=== PATIENT | male | born 1955 | race Caucasian/White ===

== ENCOUNTER 2018-01-14 23:34 | Emergency (ER) | payer OTHER | END 2018-01-15 02:07 | disposition home or self-care (01) | LOC: FTE 23:34 | DX: S30.820A Blister (nonthermal) of lower back and pelvis, initial encounter (principal); I10 Essential (primary) hypertension; E11.9 Type 2 diabetes mellitus without complications; X58.XXXA Exposure to other specified factors, initial encounter; Y92.9 Unspecified place or not applicable; Z79.4 Long term (current) use of insulin; Z79.82 Long term (current) use of aspirin | CPT/HCPCS: 99283 ==

== ENCOUNTER 2018-05-09 21:38 | Inpatient (IN) | payer OTHER ==
[2018-05-09 23:41] LABS: ADD MAN DIFF? NO
[2018-05-09 23:44] LABS: BASOPHILS % 0.2 % (0.0-2.0); EOSINOPHILS # 0.1 10^3/ul (0.0-0.5); EOSINOPHILS % 1.2 % (0.0-7.0); HEMATOCRIT 28.8 % (42.0-52.0); LYMPHOCYTES # 1.3 10^3/ul (0.8-2.9); LYMPHOCYTES % 12.3 % (15.0-51.0); MEAN CORPUSCULAR HEMOGLOBIN 30.4 pg (29.0-33.0); MEAN CORPUSCULAR HGB CONC 34.7 g/dl (32.0-37.0); MEAN CORPUSCULAR VOLUME 87.5 fl (82.0-101.0); MEAN PLATELET VOLUME 11.6 fl (7.4-10.4); MONOCYTE # 0.7 10^3/ul (0.3-0.9); MONOCYTES % 6.8 % (0.0-11.0); NEUTROPHIL # 8.3 10^3/ul (1.6-7.5); NEUTROPHILS % 79.1 % (39.0-77.0); PLATELET COUNT 196 10^3/UL (140-415); RED BLOOD COUNT 3.29 10^6/ul (4.70-6.10); RED CELL DISTRIBUTION WIDTH 12.6 % (11.5-14.5)
[2018-05-09 23:44] LABS: WHITE BLOOD COUNT 10.5 10^3/ul (4.8-10.8)
[2018-05-09 23:54] LABS: ANION GAP 12 (8-16); BLOOD UREA NITROGEN 37 mg/dl (7-20); CALCIUM 8.5 mg/dl (8.4-10.2); CARBON DIOXIDE 24 mmol/L (21-31); CHLORIDE 96 mmol/L (97-110); CREATININE 1.48 mg/dl (0.61-1.24); MAGNESIUM 1.9 mg/dl (1.7-2.5); PHOSPHORUS 3.7 mg/dl (2.5-4.9); POTASSIUM 4.8 mmol/L (3.5-5.1); SODIUM 127 mmol/L (135-144)
[2018-05-09 23:59] LABS: GLUCOSE 590 mg/dl (70-220)
[2018-05-09] MEDS: SOD CHLORIDE 0.9% IV (23:59)
[2018-05-09] MEDS: PIPER-TAZO 3.375 GM IV (PMX) 100 ML IVPB (23:59)
[2018-05-10 00:31] LABS: MODE ROOM AIR; MetHgb Venous 0.1 %; Sample Type Blood venous; Site VENOUS LINE; Venous COHb 0.6 %; Venous Fraction OxyHgb 55.6 %; Venous Total Hemglobin 11.4 g/dl
[2018-05-10] MEDS: VANCOMYCIN 1 GM (PMX) 250 ML IVPB (01:02)
[2018-05-10] MEDS: INSULIN LISPRO 100 UNIT/ML VIAL SC (02:57)
[2018-05-10] MEDS ORDERED: GLUCOSE GEL 15 GRAM TUBE PO ×2 (03:00)
[2018-05-10] MEDS ORDERED: ONDANSETRON 4 MG TAB PO (03:00)
[2018-05-10] MEDS ORDERED: DEXTROSE 50% 50 ML SYRINGE IV ×2 (03:00)
[2018-05-10] MEDS ORDERED: BISACODYL (EC) 5 MG TAB PO (03:00)
[2018-05-10] MEDS ORDERED: GLUCAGON 1 MG INJ IM (03:00)
[2018-05-10] MEDS ORDERED: NACL 0.9% 3 ML SYG IV (03:00)
[2018-05-10] MEDS ORDERED: GLUCOSE GEL 15 GRAM TUBE BUCCAL (03:00)
[2018-05-10] MEDS ORDERED: DOCUSATE SODIUM 100 MG CAP PO (03:00)
[2018-05-10] MEDS ORDERED: VANCOMYCIN IV PER PHARMACY XX (03:00)
[2018-05-10] MEDS: AMLODIPINE 2.5 MG TAB PO (03:34)
[2018-05-10] MEDS: HYDROCODONE/APAP (5/325) TAB PO ×2 (03:34→20:04)
[2018-05-10] MEDS: MAGNESIUM OXIDE 400 MG TAB PO (03:34)
[2018-05-10] MEDS ORDERED: PENDING SANTYL ORDER FOR WOUND CARE XX (05:30)
[2018-05-10] MEDS: INSULIN GLARGINE [LANTus] (100 UNITS/ML) SYG SC ×2 (05:38→20:07)
[2018-05-10] MEDS: HEPARIN 5,000 UNIT/0.5 ML VIAL SC ×3 (05:39→20:08)
[2018-05-10] MEDS: VANCOMYCIN 1 GM 250 ML IVPB (05:42)
[2018-05-10 06:55] LABS: ADD MAN DIFF? NO
[2018-05-10] MEDS ORDERED: AMLODIPINE 10 MG TAB PO (07:00)
[2018-05-10] MEDS ORDERED: METOPROLOL (XL) 25 MG TAB PO (07:00)
[2018-05-10 07:04] LABS: BASOPHILS % 0.1 % (0.0-2.0); EOSINOPHILS # 0.2 10^3/ul (0.0-0.5); EOSINOPHILS % 2.2 % (0.0-7.0); HEMATOCRIT 26.1 % (42.0-52.0); LYMPHOCYTES # 1.1 10^3/ul (0.8-2.9); LYMPHOCYTES % 13.3 % (15.0-51.0); MEAN CORPUSCULAR HEMOGLOBIN 30.3 pg (29.0-33.0); MEAN CORPUSCULAR HGB CONC 34.5 g/dl (32.0-37.0); MEAN CORPUSCULAR VOLUME 87.9 fl (82.0-101.0); MEAN PLATELET VOLUME 11.7 fl (7.4-10.4); MONOCYTE # 0.6 10^3/ul (0.3-0.9); MONOCYTES % 7.5 % (0.0-11.0); NEUTROPHIL # 6.3 10^3/ul (1.6-7.5); NEUTROPHILS % 76.4 % (39.0-77.0); PLATELET COUNT 173 10^3/UL (140-415); RED BLOOD COUNT 2.97 10^6/ul (4.70-6.10); RED CELL DISTRIBUTION WIDTH 12.7 % (11.5-14.5)
[2018-05-10 07:04] LABS: WHITE BLOOD COUNT 8.3 10^3/ul (4.8-10.8)
[2018-05-10 07:23] LABS: ALANINE AMINOTRANSFERASE 28 IU/L (13-69); ALBUMIN 2.2 g/dl (3.3-4.9); ALKALINE PHOSPHATASE 171 IU/L (42-121); ANION GAP 9 (8-16); ASPARTATE AMINO TRANSFERASE 18 IU/L (15-46); BILIRUBIN,INDIRECT 0.2 mg/dl (0-1.1); BILIRUBIN,TOTAL 0.2 mg/dl (0.2-1.3); BLOOD UREA NITROGEN 35 mg/dl (7-20); CALCIUM 8.3 mg/dl (8.4-10.2); CARBON DIOXIDE 25 mmol/L (21-31); CHLORIDE 104 mmol/L (97-110); CHOL/HDL RATIO 6.4 RATIO; CHOLESTEROL 160 mg/dl (100-200); CREATININE 1.28 mg/dl (0.61-1.24); GLUCOSE 256 mg/dl (70-220); HDL CHOLESTEROL 25 mg/dl (30-78); LDL CHOLESTEROL,CALCULATED 91 mg/dl; MAGNESIUM 1.9 mg/dl (1.7-2.5); SODIUM 134 mmol/L (135-144); TOTAL PROTEIN 5.3 g/dl (6.1-8.1); TRIGLYCERIDES 222 mg/dl (0-149)
[2018-05-10] MEDS: METOPROLOL (XL) 25 MG TAB PO (08:34)
[2018-05-10] MEDS: INSULIN ASPART [NOVOLOG] 3 ML PEN SC ×4 (08:34→20:07)
[2018-05-10] MEDS: ASPIRIN (EC) 81 MG TAB PO (08:34)
[2018-05-10] MEDS: AMLODIPINE 10 MG TAB PO (08:35)
[2018-05-10] MEDS: LACTATED RINGER'S 1,000 ML IV (13:15)
[2018-05-10] MEDS ORDERED: ONDANSETRON 4 MG INJ IV (16:30)
[2018-05-10] MEDS: SODIUM HYPOCHLORITE (1/40) 1 APPLIC BTL IRR (19:58)
[2018-05-10] MEDS ORDERED: INSULIN GLARGINE [LANTus] (100 UNITS/ML) SYG SC (21:00)
[2018-05-11] MEDS: ACCU-CHEK XX (02:22)
[2018-05-11] MEDS: HEPARIN 5,000 UNIT/0.5 ML VIAL SC ×3 (05:19→22:41)
[2018-05-11] MEDS ORDERED: VANCOMYCIN 1.5 GM in SOD CHLORIDE 0.9% 250 ML IVPB ×2 (06:00→08:00)
[2018-05-11] MEDS: HYDROCODONE/APAP (5/325) TAB PO ×2 (06:09→15:39)
[2018-05-11] MEDS ORDERED: VANCOMYCIN IV PER PHARMACY XX ×2 (07:00→15:00)
[2018-05-11] MEDS: INSULIN ASPART [NOVOLOG] 3 ML PEN SC ×6 (08:33→20:55)
[2018-05-11] MEDS: ASPIRIN (EC) 81 MG TAB PO (08:42)
[2018-05-11] MEDS: AMLODIPINE 10 MG TAB PO (08:43)
[2018-05-11] MEDS: METOPROLOL (XL) 25 MG TAB PO (08:43)
[2018-05-11] MEDS: SODIUM HYPOCHLORITE (1/40) 1 APPLIC BTL IRR (09:10)
[2018-05-11] MEDS: VANCOMYCIN 1.5 GM in SOD CHLORIDE 0.9% 250 ML IVPB (17:57)
[2018-05-11 20:46] LABS: ERYTHROCYTE SEDIMENTATION RATE 122 mm/Hr (0-20)
[2018-05-11 20:48] LABS: C-REACTIVE PROTEIN 19.2 mg/dl (0.0-0.9)
[2018-05-11] MEDS: INSULIN GLARGINE [LANTus] (100 UNITS/ML) SYG SC (20:54)
[2018-05-12] MEDS: ACCU-CHEK XX (02:00)
[2018-05-12] MEDS: INSULIN ASPART [NOVOLOG] 3 ML PEN SC ×8 (02:15→20:50)
[2018-05-12] MEDS: ACETAMINOPHEN 325 MG TAB PO (04:37)
[2018-05-12 05:33] LABS: ADD MAN DIFF? NO
[2018-05-12] MEDS: HEPARIN 5,000 UNIT/0.5 ML VIAL SC ×3 (05:34→20:45)
[2018-05-12 05:37] LABS: WHITE BLOOD COUNT 10.8 10^3/ul (4.8-10.8)
[2018-05-12 05:37] LABS: BASOPHILS % 0.2 % (0.0-2.0); EOSINOPHILS % 0.4 % (0.0-7.0); HEMATOCRIT 29.1 % (42.0-52.0); HEMOGLOBIN 9.8 g/dl (14.0-18.0); LYMPHOCYTES # 1.1 10^3/ul (0.8-2.9); LYMPHOCYTES % 10.6 % (15.0-51.0); MEAN CORPUSCULAR HEMOGLOBIN 29.5 pg (29.0-33.0); MEAN CORPUSCULAR HGB CONC 33.7 g/dl (32.0-37.0); MEAN CORPUSCULAR VOLUME 87.7 fl (82.0-101.0); MEAN PLATELET VOLUME 11.5 fl (7.4-10.4); MONOCYTE # 0.7 10^3/ul (0.3-0.9); MONOCYTES % 6.8 % (0.0-11.0); NEUTROPHIL # 8.8 10^3/ul (1.6-7.5); NEUTROPHILS % 81.5 % (39.0-77.0); PLATELET COUNT 200 10^3/UL (140-415); RED BLOOD COUNT 3.32 10^6/ul (4.70-6.10); RED CELL DISTRIBUTION WIDTH 12.4 % (11.5-14.5)
[2018-05-12 05:55] LABS: ANION GAP 10 (8-16); BLOOD UREA NITROGEN 22 mg/dl (7-20); CALCIUM 8.3 mg/dl (8.4-10.2); CARBON DIOXIDE 25 mmol/L (21-31); CHLORIDE 104 mmol/L (97-110); CREATININE 1.07 mg/dl (0.61-1.24); GLUCOSE 149 mg/dl (70-220); MAGNESIUM 1.9 mg/dl (1.7-2.5); PHOSPHORUS 3.1 mg/dl (2.5-4.9); SODIUM 135 mmol/L (135-144)
[2018-05-12] MEDS: SODIUM HYPOCHLORITE (1/40) 1 APPLIC BTL IRR (08:03)
[2018-05-12] MEDS: ASPIRIN (EC) 81 MG TAB PO (08:03)
[2018-05-12] MEDS: AMLODIPINE 10 MG TAB PO (08:04)
[2018-05-12] MEDS: METOPROLOL (XL) 25 MG TAB PO (08:04)
[2018-05-12] MEDS: LISINOPRIL 20 MG TAB PO (14:16)
[2018-05-12] MEDS: HYDROCODONE/APAP (5/325) TAB PO ×2 (16:44→22:16)
[2018-05-12] MEDS: VANCOMYCIN 1.5 GM in SOD CHLORIDE 0.9% 250 ML IVPB (17:45)
[2018-05-12] MEDS: INSULIN GLARGINE [LANTus] (100 UNITS/ML) SYG SC (20:45)
[2018-05-13] MEDS: ACCU-CHEK XX (02:00)
[2018-05-13 05:16] LABS: ADD MAN DIFF? NO
[2018-05-13 05:21] LABS: WHITE BLOOD COUNT 9.2 10^3/ul (4.8-10.8)
[2018-05-13 05:21] LABS: BASOPHILS % 0.2 % (0.0-2.0); EOSINOPHILS # 0.2 10^3/ul (0.0-0.5); EOSINOPHILS % 1.7 % (0.0-7.0); HEMATOCRIT 29.8 % (42.0-52.0); LYMPHOCYTES # 1.2 10^3/ul (0.8-2.9); LYMPHOCYTES % 13.5 % (15.0-51.0); MEAN CORPUSCULAR HEMOGLOBIN 29.5 pg (29.0-33.0); MEAN CORPUSCULAR HGB CONC 33.6 g/dl (32.0-37.0); MEAN CORPUSCULAR VOLUME 87.9 fl (82.0-101.0); MEAN PLATELET VOLUME 11.1 fl (7.4-10.4); MONOCYTE # 0.6 10^3/ul (0.3-0.9); MONOCYTES % 6.6 % (0.0-11.0); NEUTROPHIL # 7.1 10^3/ul (1.6-7.5); NEUTROPHILS % 77.7 % (39.0-77.0); PLATELET COUNT 220 10^3/UL (140-415); RED BLOOD COUNT 3.39 10^6/ul (4.70-6.10); RED CELL DISTRIBUTION WIDTH 12.5 % (11.5-14.5)
[2018-05-13] MEDS: HYDROCODONE/APAP (5/325) TAB PO ×3 (05:30→23:23)
[2018-05-13] MEDS: HEPARIN 5,000 UNIT/0.5 ML VIAL SC ×3 (05:33→22:04)
[2018-05-13 05:38] LABS: ANION GAP 12 (8-16); BLOOD UREA NITROGEN 20 mg/dl (7-20); CALCIUM 8.7 mg/dl (8.4-10.2); CARBON DIOXIDE 25 mmol/L (21-31); CHLORIDE 103 mmol/L (97-110); CREATININE 1.12 mg/dl (0.61-1.24); GLUCOSE 116 mg/dl (70-220); POTASSIUM 4.1 mmol/L (3.5-5.1); SODIUM 136 mmol/L (135-144)
[2018-05-13] MEDS: INSULIN ASPART [NOVOLOG] 3 ML PEN SC ×7 (08:00→20:38)
[2018-05-13] MEDS: SODIUM HYPOCHLORITE (1/40) 1 APPLIC BTL IRR (08:25)
[2018-05-13] MEDS: LISINOPRIL 20 MG TAB PO (08:26)
[2018-05-13] MEDS: ASPIRIN (EC) 81 MG TAB PO (08:26)
[2018-05-13] MEDS: AMLODIPINE 10 MG TAB PO (08:27)
[2018-05-13] MEDS: METOPROLOL (XL) 25 MG TAB PO (08:27)
[2018-05-13] MEDS: CEFTRIAXONE 1 GM/50 ML (PMX) 50 ML IVPB (11:25)
[2018-05-13] MEDS: INSULIN GLARGINE [LANTus] (100 UNITS/ML) SYG SC (20:38)
[2018-05-14 00:20] LABS: ADD UMIC YES; UR AMORPHOUS CRYSTAL FEW /HPF (NONE SEEN); UR ASCORBIC ACID NEGATIVE (NEGATIVE); UR BACTERIA FEW /HPF (NONE SEEN); UR BILIRUBIN (Dip) NEGATIVE (NEGATIVE); UR BLOOD (Dip) NEGATIVE (NEGATIVE); UR CLARITY CLOUDY (CLEAR); UR COLOR YELLOW (YELLOW); UR GLUCOSE (Dip) 2+ mg/dL (NEGATIVE); UR KETONES (Dip) NEGATIVE (NEGATIVE); UR LEUKOCYTE ESTERASE (Dip) NEGATIVE Leu/ul (NEGATIVE); UR MUCUS FEW /HPF (NONE SEEN); UR NITRITE (Dip) NEGATIVE (NEGATIVE); UR RBC 3 /HPF (0-5); UR SPECIFIC GRAVITY (Dip) 1.016 (1.003-1.030); UR TOTAL PROTEIN (Dip) 3+ mg/dl (NEGATIVE); UR UROBILINOGEN (Dip) NEGATIVE (NEGATIVE); UR WBC 3 /HPF (0-5)
[2018-05-14] MEDS: HYDROCODONE/APAP (5/325) TAB PO (01:49)
[2018-05-14] MEDS: ACCU-CHEK XX (02:01)
[2018-05-14 05:17] LABS: ADD MAN DIFF? NO
[2018-05-14 05:18] LABS: BASOPHILS % 0.3 % (0.0-2.0); EOSINOPHILS # 0.2 10^3/ul (0.0-0.5); HEMATOCRIT 27.3 % (42.0-52.0); HEMOGLOBIN 9.2 g/dl (14.0-18.0); LYMPHOCYTES # 1.2 10^3/ul (0.8-2.9); LYMPHOCYTES % 15.4 % (15.0-51.0); MEAN CORPUSCULAR HGB CONC 33.7 g/dl (32.0-37.0); MEAN CORPUSCULAR VOLUME 88.9 fl (82.0-101.0); MEAN PLATELET VOLUME 10.9 fl (7.4-10.4); MONOCYTE # 0.5 10^3/ul (0.3-0.9); MONOCYTES % 6.4 % (0.0-11.0); NEUTROPHILS % 74.4 % (39.0-77.0); PLATELET COUNT 245 10^3/UL (140-415); RED BLOOD COUNT 3.07 10^6/ul (4.70-6.10); RED CELL DISTRIBUTION WIDTH 12.4 % (11.5-14.5)
[2018-05-14 05:42] LABS: ANION GAP 11 (8-16); BLOOD UREA NITROGEN 26 mg/dl (7-20); CALCIUM 8.5 mg/dl (8.4-10.2); CARBON DIOXIDE 27 mmol/L (21-31); CHLORIDE 104 mmol/L (97-110); CREATININE 1.19 mg/dl (0.61-1.24); GLUCOSE 202 mg/dl (70-220); POTASSIUM 4.6 mmol/L (3.5-5.1); SODIUM 137 mmol/L (135-144)
[2018-05-14] MEDS: HEPARIN 5,000 UNIT/0.5 ML VIAL SC ×3 (05:59→22:23)
[2018-05-14] MEDS: ASPIRIN (EC) 81 MG TAB PO (08:12)
[2018-05-14] MEDS: LISINOPRIL 20 MG TAB PO (08:13)
[2018-05-14] MEDS: AMLODIPINE 10 MG TAB PO (08:13)
[2018-05-14] MEDS: METOPROLOL (XL) 25 MG TAB PO (08:13)
[2018-05-14] MEDS: INSULIN ASPART [NOVOLOG] 3 ML PEN SC ×7 (08:15→21:00)
[2018-05-14] MEDS: SODIUM HYPOCHLORITE (1/40) 1 APPLIC BTL IRR (08:21)
[2018-05-14] MEDS: CEFTRIAXONE 1 GM/50 ML (PMX) 50 ML IVPB (10:59)
[2018-05-14] MEDS: ACETAMINOPHEN 325 MG TAB PO (15:41)
[2018-05-14] MEDS: INSULIN GLARGINE [LANTus] (100 UNITS/ML) SYG SC (20:46)
[2018-05-15] MEDS: ACCU-CHEK XX (02:00)
[2018-05-15] MEDS: HEPARIN 5,000 UNIT/0.5 ML VIAL SC ×3 (05:42→21:05)
[2018-05-15] MEDS: INSULIN ASPART [NOVOLOG] 3 ML PEN SC ×7 (08:01→21:00)
[2018-05-15] MEDS: SODIUM HYPOCHLORITE (1/40) 1 APPLIC BTL IRR (08:14)
[2018-05-15] MEDS: ASPIRIN (EC) 81 MG TAB PO (08:14)
[2018-05-15] MEDS: LISINOPRIL 20 MG TAB PO (08:15)
[2018-05-15] MEDS: AMLODIPINE 10 MG TAB PO (08:15)
[2018-05-15] MEDS: METOPROLOL (XL) 25 MG TAB PO (08:15)
[2018-05-15] MEDS: CEFTRIAXONE 1 GM/50 ML (PMX) 50 ML IVPB (10:49)
[2018-05-15] MEDS: HYDROCODONE/APAP (5/325) TAB PO (14:08)
[2018-05-15] MEDS: INSULIN GLARGINE [LANTus] (100 UNITS/ML) SYG SC (21:04)
[2018-05-16] MEDS: ACCU-CHEK XX (02:00)
[2018-05-16] MEDS: HEPARIN 5,000 UNIT/0.5 ML VIAL SC ×2 (06:28→14:03)
[2018-05-16] MEDS: INSULIN ASPART [NOVOLOG] 3 ML PEN SC ×6 (08:00→17:14)
[2018-05-16] MEDS: ASPIRIN (EC) 81 MG TAB PO (08:05)
[2018-05-16] MEDS: METOPROLOL (XL) 25 MG TAB PO (08:06)
[2018-05-16] MEDS: LISINOPRIL 20 MG TAB PO (08:06)
[2018-05-16] MEDS: AMLODIPINE 10 MG TAB PO (08:06)
[2018-05-16] MEDS: SODIUM HYPOCHLORITE (1/40) 1 APPLIC BTL IRR (08:07)
[2018-05-16] MEDS: ACETAMINOPHEN 325 MG TAB PO (10:24)
[2018-05-16] MEDS: CEFTRIAXONE 1 GM/50 ML (PMX) 50 ML IVPB (10:24)
[2018-05-16 11:06] LABS: ERYTHROCYTE SEDIMENTATION RATE 140 mm/Hr (0-20)
[2018-05-16 11:34] LABS: C-REACTIVE PROTEIN 5.7 mg/dl (0.0-0.9)
[2018-05-17 12:52] LABS: PROCALCITONIN 0.22 ng/mL (<0.10)
== END 2018-05-16 18:18 | disposition home or self-care (01) | DRG 571 ==
LOC: E/R 21:38 → PP2 05-10 02:19
PROVIDERS: Family Medicine
PROC: 0JBR0ZZ Excision of Left Foot Subcutaneous Tissue and Fascia, Open Approach (ICD-10-PCS; principal; 2018-05-11)
DX: L03.115 Cellulitis of right lower limb (principal); E46 Unspecified protein-calorie malnutrition; E87.1 Hypo-osmolality and hyponatremia; N17.9 Acute kidney failure, unspecified; R78.81 Bacteremia; E11.621 Type 2 diabetes mellitus with foot ulcer; S80.01XA Contusion of right knee, initial encounter; E11.65 Type 2 diabetes mellitus with hyperglycemia; I10 Essential (primary) hypertension; Z68.31 Body mass index [BMI] 31.0-31.9, adult; M92.51 Juvenile osteochondrosis of proximal tibia; L97.519 Non-pressure chronic ulcer of other part of right foot with unspecified severity; W01.0XXA Fall on same level from slipping, tripping and stumbling without subsequent striking against object, initial encounter; E11.42 Type 2 diabetes mellitus with diabetic polyneuropathy; L97.529 Non-pressure chronic ulcer of other part of left foot with unspecified severity; B95.7 Other staphylococcus as the cause of diseases classified elsewhere; M17.11 Unilateral primary osteoarthritis, right knee; M23.203 Derangement of unspecified medial meniscus due to old tear or injury, right knee; M23.221 Derangement of posterior horn of medial meniscus due to old tear or injury, right knee
CPT/HCPCS: 36415; 73562; 73721; 80048; 80053; 80061; 81001; 82803; 82962; 83036; 83735; 84100; 84145; 84443; 85025; 85651; 86140; 87040; 93306; 96374; 96375; 97116; 97162; 97530; 99285-25

== ENCOUNTER 2018-10-24 08:53 | Emergency (ER) | payer MEDICARE, OTHER ==
[2018-10-24] MEDS: SOD CHLORIDE 0.9% 500 ML IV (10:34)
[2018-10-24] MEDS: KETOROLAC 15 MG INJ IV (10:35)
[2018-10-24 10:47] LABS: ADD MAN DIFF? NO
[2018-10-24 10:49] LABS: WHITE BLOOD COUNT 7.4 10^3/ul (4.8-10.8)
[2018-10-24 10:49] LABS: BASOPHILS % 0.4 % (0.0-2.0); EOSINOPHILS # 0.3 10^3/ul (0.0-0.5); EOSINOPHILS % 3.6 % (0.0-7.0); HEMATOCRIT 35.9 % (42.0-52.0); HEMOGLOBIN 12.7 g/dl (14.0-18.0); LYMPHOCYTES # 1.1 10^3/ul (0.8-2.9); LYMPHOCYTES % 15.3 % (15.0-51.0); MEAN CORPUSCULAR HEMOGLOBIN 29.7 pg (29.0-33.0); MEAN CORPUSCULAR HGB CONC 35.4 g/dl (32.0-37.0); MEAN CORPUSCULAR VOLUME 84.1 fl (82.0-101.0); MONOCYTE # 0.4 10^3/ul (0.3-0.9); MONOCYTES % 5.4 % (0.0-11.0); NEUTROPHIL # 5.6 10^3/ul (1.6-7.5); NEUTROPHILS % 74.8 % (39.0-77.0); PLATELET COUNT 209 10^3/UL (140-415); RED BLOOD COUNT 4.27 10^6/ul (4.70-6.10)
[2018-10-24 11:14] LABS: ALANINE AMINOTRANSFERASE 21 IU/L (13-69); ALBUMIN 2.8 g/dl (3.3-4.9); ALBUMIN/GLOBULIN RATIO 0.84; ALKALINE PHOSPHATASE 170 IU/L (42-121); ANION GAP 6 (5-13); ASPARTATE AMINO TRANSFERASE 22 IU/L (15-46); BILIRUBIN,INDIRECT 0.4 mg/dl (0-1.1); BILIRUBIN,TOTAL 0.4 mg/dl (0.2-1.3); BLOOD UREA NITROGEN 20 mg/dl (7-20); CALCIUM 8.4 mg/dl (8.4-10.2); CARBON DIOXIDE 25 mmol/L (21-31); CHLORIDE 102 mmol/L (97-110); CREATININE 1.33 mg/dl (0.61-1.24); Estimated GFR 54 mL/min (>60); LIPASE 67 U/L (23-300); POTASSIUM 4.8 mmol/L (3.5-5.1); SODIUM 133 mmol/L (135-144); TOTAL PROTEIN 6.1 g/dl (6.1-8.1)
[2018-10-24 11:19] LABS: GLUCOSE 484 mg/dl (70-220)
[2018-10-24] MEDS: INSULIN LISPRO 100 UNIT/ML VIAL SC (11:46)
[2018-10-24] MEDS: SOD CHLORIDE 0.9% 1,000 ML IV (13:48)
[2018-10-24] MEDS: INSULIN REGULAR, HUMAN 100 UNIT/1 ML 3ML VIAL IVP (13:53)
[2018-10-24] MEDS: DEXTROSE 50% 50 ML SYRINGE IV (13:57)
== END 2018-10-24 14:38 | disposition home or self-care (01) ==
LOC: E/R 08:53
DX: E11.621 Type 2 diabetes mellitus with foot ulcer (principal); L97.521 Non-pressure chronic ulcer of other part of left foot limited to breakdown of skin; E11.65 Type 2 diabetes mellitus with hyperglycemia; I10 Essential (primary) hypertension
CPT/HCPCS: 36415; 73630-LT; 80053; 82962; 83690; 85025; 87070; 96372; 96374; 96375; 99284-25

== ENCOUNTER 2018-12-25 11:18 | Inpatient (IN) | payer MEDICARE, OTHER ==
[2018-12-25 12:23] LABS: ADD MAN DIFF? NO
[2018-12-25 12:28] LABS: BASOPHILS % 0.3 % (0.0-2.0); EOSINOPHILS % 0.1 % (0.0-7.0); HEMATOCRIT 35.8 % (42.0-52.0); HEMOGLOBIN 12.5 g/dl (14.0-18.0); LYMPHOCYTES # 0.8 10^3/ul (0.8-2.9); LYMPHOCYTES % 4.8 % (15.0-51.0); MEAN CORPUSCULAR HGB CONC 34.9 g/dl (32.0-37.0); MEAN CORPUSCULAR VOLUME 85.9 fl (82.0-101.0); MEAN PLATELET VOLUME 12.2 fl (7.4-10.4); MONOCYTE # 0.9 10^3/ul (0.3-0.9); MONOCYTES % 5.7 % (0.0-11.0); NEUTROPHIL # 13.7 10^3/ul (1.6-7.5); NEUTROPHILS % 88.6 % (39.0-77.0); PLATELET COUNT 275 10^3/UL (140-415); RED BLOOD COUNT 4.17 10^6/ul (4.70-6.10); RED CELL DISTRIBUTION WIDTH 12.2 % (11.5-14.5)
[2018-12-25 12:28] LABS: WHITE BLOOD COUNT 15.5 10^3/ul (4.8-10.8)
[2018-12-25] MEDS: PIPER-TAZO 3.375 GM IV (PMX) 100 ML IVPB ×2 (12:46→22:13)
[2018-12-25 12:57] LABS: ALANINE AMINOTRANSFERASE 14 IU/L (13-69); ALBUMIN 2.7 g/dl (3.3-4.9); ALBUMIN/GLOBULIN RATIO 0.79; ALKALINE PHOSPHATASE 175 IU/L (42-121); ANION GAP 7 (5-13); ASPARTATE AMINO TRANSFERASE 17 IU/L (15-46); BILIRUBIN,INDIRECT 0.5 mg/dl (0-1.1); BILIRUBIN,TOTAL 0.5 mg/dl (0.2-1.3); BLOOD UREA NITROGEN 27 mg/dl (7-20); CARBON DIOXIDE 24 mmol/L (21-31); CHLORIDE 96 mmol/L (97-110); CREATININE 1.75 mg/dl (0.61-1.24); Estimated GFR 39 mL/min (>60); POTASSIUM 4.5 mmol/L (3.5-5.1); SODIUM 127 mmol/L (135-144); TOTAL PROTEIN 6.1 g/dl (6.1-8.1)
[2018-12-25] MEDS ORDERED: NACL 0.9% 3 ML SYG IV (13:00)
[2018-12-25] MEDS ORDERED: ONDANSETRON 4 MG INJ IV (13:00)
[2018-12-25] MEDS ORDERED: MAGNESIUM HYDROXIDE 30ML CUP PO (13:00)
[2018-12-25] MEDS ORDERED: HYDROCODONE/APAP (5/325) TAB PO ×2 (13:00)
[2018-12-25 13:03] LABS: ADD UMIC YES; UR ASCORBIC ACID NEGATIVE (NEGATIVE); UR BILIRUBIN (Dip) NEGATIVE (NEGATIVE); UR BLOOD (Dip) 1+ mg/dL (NEGATIVE); UR CLARITY SLIGHTLY CLOUDY (CLEAR); UR COLOR YELLOW (YELLOW); UR GLUCOSE (Dip) 3+ mg/dL (NEGATIVE); UR KETONES (Dip) TRACE mg/dL (NEGATIVE); UR LEUKOCYTE ESTERASE (Dip) NEGATIVE Leu/ul (NEGATIVE); UR NITRITE (Dip) NEGATIVE (NEGATIVE); UR RBC 6 /HPF (0-5); UR SPECIFIC GRAVITY (Dip) 1.025 (1.003-1.030); UR TOTAL PROTEIN (Dip) 3+ mg/dl (NEGATIVE); UR UROBILINOGEN (Dip) NEGATIVE (NEGATIVE); UR WBC 2 /HPF (0-5)
[2018-12-25 13:11] LABS: GLUCOSE 562 mg/dl (70-220)
[2018-12-25 13:24] LABS: HEMOGLOBIN A1C 13.2 % (0-5.9)
[2018-12-25] MEDS ORDERED: VANCOMYCIN IV PER PHARMACY XX (13:30)
[2018-12-25] MEDS: VANCOMYCIN 1 GM (PMX) 250 ML IVPB (13:35)
[2018-12-25] MEDS: INSULIN LISPRO 100 UNIT/ML VIAL SC (13:39)
[2018-12-25] MEDS ORDERED: DEXTROSE 50% 50 ML SYRINGE IV ×2 (15:30)
[2018-12-25] MEDS ORDERED: GLUCOSE GEL 15 GRAM TUBE BUCCAL (15:30)
[2018-12-25] MEDS ORDERED: GLUCOSE GEL 15 GRAM TUBE PO ×2 (15:30)
[2018-12-25] MEDS ORDERED: GLUCAGON 1 MG INJ IM (15:30)
[2018-12-25] MEDS: SOD CHLORIDE 0.9% 1,000 ML IV ×3 (15:55→18:50)
[2018-12-25] MEDS: GABAPENTIN 300 MG CAP PO ×2 (15:55→22:08)
[2018-12-25] MEDS: VANCOMYCIN 750 MG (PMX) 250 ML IVPB (15:57)
[2018-12-25] MEDS: ACCU-CHEK XX (16:09)
[2018-12-25] MEDS: INSULIN ASPART [NOVOLOG] 3 ML PEN SC ×2 (18:49→22:13)
[2018-12-25 20:26] LABS: PROCALCITONIN 0.47 ng/mL (0.00-0.10)
[2018-12-25 20:34] LABS: C-REACTIVE PROTEIN 19.1 mg/dl (0.0-0.9)
[2018-12-25 20:42] LABS: ERYTHROCYTE SEDIMENTATION RATE 125 mm/Hr (0-20)
[2018-12-25] MEDS ORDERED: INSULIN GLARGINE [LANtus] 3 ML PEN SC (21:00)
[2018-12-25] MEDS: ATORVASTATIN 40 MG TAB PO (22:08)
[2018-12-25] MEDS: INSULIN GLARGINE [LANTus] (100 UNITS/ML) SYG SC (22:12)
[2018-12-26] MEDS: PIPER-TAZO 3.375 GM IV (PMX) 100 ML IVPB ×2 (05:51→13:32)
[2018-12-26] MEDS: Insulin NOVOLOG SS MODERATE Algorithm(NPO/TPN/ENTERAL FEEDS) SC ×4 (05:52→17:33)
[2018-12-26 07:19] LABS: ADD MAN DIFF? NO
[2018-12-26 07:21] LABS: WHITE BLOOD COUNT 10.2 10^3/ul (4.8-10.8)
[2018-12-26 07:21] LABS: BASOPHILS % 0.3 % (0.0-2.0); EOSINOPHILS # 0.1 10^3/ul (0.0-0.5); EOSINOPHILS % 1.4 % (0.0-7.0); HEMATOCRIT 31.7 % (42.0-52.0); HEMOGLOBIN 10.9 g/dl (14.0-18.0); LYMPHOCYTES # 1.2 10^3/ul (0.8-2.9); LYMPHOCYTES % 12.1 % (15.0-51.0); MEAN CORPUSCULAR HEMOGLOBIN 29.7 pg (29.0-33.0); MEAN CORPUSCULAR HGB CONC 34.4 g/dl (32.0-37.0); MEAN CORPUSCULAR VOLUME 86.4 fl (82.0-101.0); MEAN PLATELET VOLUME 11.8 fl (7.4-10.4); MONOCYTE # 0.7 10^3/ul (0.3-0.9); NEUTROPHIL # 8.1 10^3/ul (1.6-7.5); NEUTROPHILS % 78.9 % (39.0-77.0); PLATELET COUNT 237 10^3/UL (140-415); RED BLOOD COUNT 3.67 10^6/ul (4.70-6.10); RED CELL DISTRIBUTION WIDTH 12.3 % (11.5-14.5)
[2018-12-26 07:48] LABS: IRON 11 ug/dl (35-150)
[2018-12-26 07:52] LABS: ANION GAP 5 (5-13); BLOOD UREA NITROGEN 28 mg/dl (7-20); CALCIUM 7.7 mg/dl (8.4-10.2); CARBON DIOXIDE 25 mmol/L (21-31); CHLORIDE 102 mmol/L (97-110); CREATININE 1.89 mg/dl (0.61-1.24); Estimated GFR 36 mL/min (>60); GLUCOSE 218 mg/dl (70-220); MAGNESIUM 1.9 mg/dl (1.7-2.5); POTASSIUM 4.1 mmol/L (3.5-5.1); SODIUM 132 mmol/L (135-144)
[2018-12-26 07:57] LABS: % IRON SATURATION 7 % SAT (22-52); TOTAL IRON BINDING CAPACITY 165 ug/dl (241-421)
[2018-12-26] MEDS: GABAPENTIN 300 MG CAP PO ×3 (08:52→20:07)
[2018-12-26] MEDS: ASPIRIN (EC) 81 MG TAB PO (08:52)
[2018-12-26] MEDS: AMLODIPINE 10 MG TAB PO (08:54)
[2018-12-26] MEDS: METOPROLOL (XL) 25 MG TAB PO (08:54)
[2018-12-26] MEDS ORDERED: INSULIN ASPART [NOVOLOG] 3 ML PEN SC ×2 (09:00→21:00)
[2018-12-26] MEDS ORDERED: LISINOPRIL 20 MG TAB PO (09:00)
[2018-12-26] MEDS: INSULIN GLARGINE [LANTus] (100 UNITS/ML) SYG SC ×2 (09:04→21:33)
[2018-12-26] MEDS ORDERED: PROPOFOL 0 ML (10:58)
[2018-12-26] MEDS ORDERED: MIDAZOLAM 1 MG/ML 2 ML INJ (10:58)
[2018-12-26] MEDS ORDERED: FENTAnyl 50 MCG/ML VIAL (10:58)
[2018-12-26] MEDS ORDERED: PROPOFOL 20 ML (11:11)
[2018-12-26] MEDS: POLYMYXIN/BACITRACIN 1L IRRIG (11:43)
[2018-12-26] MEDS: LIDOCAINE 2% (MDV) 20 ML INJ (11:43)
[2018-12-26] MEDS: SOD CHLORIDE 0.9% 1,000 ML IV (13:20)
[2018-12-26] MEDS: ACETAMINOPHEN 325 MG TAB PO (14:23)
[2018-12-26] MEDS: VANCOMYCIN 1 GM 250 ML IVPB (16:22)
[2018-12-26] MEDS: CEFEPIME 1GM/50 ML (PMX) 50 ML IVPB (20:07)
[2018-12-26] MEDS: ATORVASTATIN 40 MG TAB PO (20:07)
[2018-12-26] MEDS: Insulin NOVOLOG SS MODERATE Algorithm (SS with meals and bedtime) SC (21:32)
[2018-12-27] MEDS: SOD CHLORIDE 0.9% 1,000 ML IV ×2 (05:15→08:17)
[2018-12-27 07:30] LABS: ADD MAN DIFF? NO
[2018-12-27 07:32] LABS: WHITE BLOOD COUNT 9.3 10^3/ul (4.8-10.8)
[2018-12-27 07:32] LABS: BASOPHILS % 0.2 % (0.0-2.0); EOSINOPHILS # 0.2 10^3/ul (0.0-0.5); EOSINOPHILS % 1.8 % (0.0-7.0); HEMATOCRIT 28.7 % (42.0-52.0); HEMOGLOBIN 10.2 g/dl (14.0-18.0); LYMPHOCYTES # 1.5 10^3/ul (0.8-2.9); LYMPHOCYTES % 15.7 % (15.0-51.0); MEAN CORPUSCULAR HEMOGLOBIN 30.3 pg (29.0-33.0); MEAN CORPUSCULAR HGB CONC 35.5 g/dl (32.0-37.0); MEAN CORPUSCULAR VOLUME 85.2 fl (82.0-101.0); MONOCYTE # 0.7 10^3/ul (0.3-0.9); MONOCYTES % 7.7 % (0.0-11.0); NEUTROPHIL # 6.9 10^3/ul (1.6-7.5); NEUTROPHILS % 74.1 % (39.0-77.0); PLATELET COUNT 243 10^3/UL (140-415); RED BLOOD COUNT 3.37 10^6/ul (4.70-6.10); RED CELL DISTRIBUTION WIDTH 12.4 % (11.5-14.5)
[2018-12-27] MEDS: Insulin NOVOLOG SS MODERATE Algorithm (SS with meals and bedtime) SC ×4 (07:56→20:41)
[2018-12-27 07:58] LABS: ANION GAP 3 (5-13); BLOOD UREA NITROGEN 20 mg/dl (7-20); CALCIUM 7.9 mg/dl (8.4-10.2); CARBON DIOXIDE 26 mmol/L (21-31); CHLORIDE 107 mmol/L (97-110); CREATININE 1.74 mg/dl (0.61-1.24); Estimated GFR 40 mL/min (>60); GLUCOSE 118 mg/dl (70-220); MAGNESIUM 1.9 mg/dl (1.7-2.5); POTASSIUM 3.6 mmol/L (3.5-5.1); SODIUM 136 mmol/L (135-144)
[2018-12-27] MEDS: INSULIN GLARGINE [LANTus] (100 UNITS/ML) SYG SC ×2 (07:58→20:42)
[2018-12-27] MEDS: GABAPENTIN 300 MG CAP PO ×3 (09:34→20:41)
[2018-12-27] MEDS: FERROUS SULFATE (EC) 325 MG TAB PO (09:34)
[2018-12-27] MEDS: ASPIRIN (EC) 81 MG TAB PO (09:34)
[2018-12-27] MEDS: AMLODIPINE 10 MG TAB PO (09:34)
[2018-12-27] MEDS: CEFEPIME 1GM/50 ML (PMX) 50 ML IVPB (09:35)
[2018-12-27] MEDS: METOPROLOL (XL) 25 MG TAB PO (09:35)
[2018-12-27 10:18] LABS: ADD UMIC YES; UR ASCORBIC ACID NEGATIVE (NEGATIVE); UR BACTERIA FEW /HPF (NONE SEEN); UR BILIRUBIN (Dip) NEGATIVE (NEGATIVE); UR BLOOD (Dip) NEGATIVE (NEGATIVE); UR BUDDING YEAST FEW /HPF (NONE SEEN); UR CLARITY SLIGHTLY CLOUDY (CLEAR); UR COLOR YELLOW (YELLOW); UR GLUCOSE (Dip) 2+ mg/dL (NEGATIVE); UR KETONES (Dip) NEGATIVE (NEGATIVE); UR LEUKOCYTE ESTERASE (Dip) NEGATIVE Leu/ul (NEGATIVE); UR NITRITE (Dip) NEGATIVE (NEGATIVE); UR RBC 6 /HPF (0-5); UR SPECIFIC GRAVITY (Dip) 1.013 (1.003-1.030); UR SQUAMOUS EPITHELIAL CELL FEW /HPF (FEW); UR TOTAL PROTEIN (Dip) 3+ mg/dl (NEGATIVE); UR UROBILINOGEN (Dip) NEGATIVE (NEGATIVE); UR WBC 4 /HPF (0-5)
[2018-12-27 10:22] LABS: SODIUM,URINE RANDOM 41 mmol/L (30-90)
[2018-12-27 10:22] LABS: CREATININE,URINE RANDOM 66.66 mg/dl (20-370)
[2018-12-27] MEDS: CEFTRIAXONE 1 GM/50 ML (PMX) 50 ML IVPB (16:02)
[2018-12-27] MEDS: INSULIN ASPART [NOVOLOG] 3 ML PEN SC (17:35)
[2018-12-27 20:00] LABS: C-REACTIVE PROTEIN 14.7 mg/dl (0.0-0.9)
[2018-12-27 20:19] LABS: PROCALCITONIN 0.34 ng/mL (0.00-0.10)
[2018-12-27] MEDS: ATORVASTATIN 40 MG TAB PO (20:40)
[2018-12-27 20:49] LABS: ERYTHROCYTE SEDIMENTATION RATE 130 mm/Hr (0-20)
[2018-12-28 06:07] LABS: ADD MAN DIFF? NO; BASOPHILS % 0.2 % (0.0-2.0); EOSINOPHILS # 0.2 10^3/ul (0.0-0.5); EOSINOPHILS % 2.5 % (0.0-7.0); HEMATOCRIT 31.2 % (42.0-52.0); HEMOGLOBIN 10.9 g/dl (14.0-18.0); LYMPHOCYTES # 1.9 10^3/ul (0.8-2.9); LYMPHOCYTES % 20.4 % (15.0-51.0); MEAN CORPUSCULAR HEMOGLOBIN 30.1 pg (29.0-33.0); MEAN CORPUSCULAR HGB CONC 34.9 g/dl (32.0-37.0); MEAN CORPUSCULAR VOLUME 86.2 fl (82.0-101.0); MEAN PLATELET VOLUME 11.1 fl (7.4-10.4); MONOCYTE # 0.7 10^3/ul (0.3-0.9); MONOCYTES % 7.3 % (0.0-11.0); NEUTROPHIL # 6.3 10^3/ul (1.6-7.5); NEUTROPHILS % 69.2 % (39.0-77.0); PLATELET COUNT 274 10^3/UL (140-415); RED BLOOD COUNT 3.62 10^6/ul (4.70-6.10)
[2018-12-28 06:07] LABS: WHITE BLOOD COUNT 9.1 10^3/ul (4.8-10.8)
[2018-12-28 06:44] LABS: ANION GAP 3 (5-13); BLOOD UREA NITROGEN 17 mg/dl (7-20); CARBON DIOXIDE 27 mmol/L (21-31); CHLORIDE 110 mmol/L (97-110); CREATININE 1.59 mg/dl (0.61-1.24); Estimated GFR 44 mL/min (>60); GLUCOSE 95 mg/dl (70-220); PHOSPHORUS 4.1 mg/dl (2.5-4.9); POTASSIUM 3.9 mmol/L (3.5-5.1); SODIUM 140 mmol/L (135-144)
[2018-12-28] MEDS: Insulin NOVOLOG SS MODERATE Algorithm (SS with meals and bedtime) SC ×4 (07:52→21:10)
[2018-12-28] MEDS: AMLODIPINE 10 MG TAB PO (08:23)
[2018-12-28] MEDS: ASPIRIN (EC) 81 MG TAB PO (08:23)
[2018-12-28] MEDS: ASCORBIC ACID 500 MG TAB PO ×2 (08:23→21:10)
[2018-12-28] MEDS: FERROUS SULFATE (EC) 325 MG TAB PO (08:23)
[2018-12-28] MEDS: METOPROLOL (XL) 25 MG TAB PO (08:23)
[2018-12-28] MEDS: GABAPENTIN 300 MG CAP PO ×3 (08:23→21:11)
[2018-12-28] MEDS: INSULIN GLARGINE [LANTus] (100 UNITS/ML) SYG SC ×2 (08:24→21:11)
[2018-12-28] MEDS: INSULIN ASPART [NOVOLOG] 3 ML PEN SC ×3 (08:26→17:37)
[2018-12-28] MEDS: hydrALAzine 20 MG INJ IV (10:39)
[2018-12-28 15:22] LABS: CREATININE, RANDOM URINE 73 mg/dL (20-320); MICROALBUMIN 280.5 mg/dL; MICROALBUMIN/CREATININE RATIO 3842 (<30)
[2018-12-28] MEDS: CEFTRIAXONE 1 GM/50 ML (PMX) 50 ML IVPB (16:25)
[2018-12-28] MEDS ORDERED: VANCOMYCIN IV PER PHARMACY XX (16:30)
[2018-12-28] MEDS: VANCOMYCIN HCL 1.25 GM in SOD CHLORIDE 0.9% 250 ML IVPB (17:39)
[2018-12-28] MEDS: ATORVASTATIN 40 MG TAB PO (21:10)
[2018-12-29] MEDS: INSULIN ASPART [NOVOLOG] 3 ML PEN SC ×7 (01:27→17:26)
[2018-12-29 07:48] LABS: ANION GAP 3 (5-13); BLOOD UREA NITROGEN 16 mg/dl (7-20); CALCIUM 8.1 mg/dl (8.4-10.2); CARBON DIOXIDE 27 mmol/L (21-31); CHLORIDE 110 mmol/L (97-110); CREATININE 1.43 mg/dl (0.61-1.24); Estimated GFR 50 mL/min (>60); GLUCOSE 91 mg/dl (70-220); MAGNESIUM 1.9 mg/dl (1.7-2.5); POTASSIUM 3.7 mmol/L (3.5-5.1); SODIUM 140 mmol/L (135-144)
[2018-12-29] MEDS: METOPROLOL (XL) 25 MG TAB PO (08:01)
[2018-12-29] MEDS: AMLODIPINE 10 MG TAB PO (08:01)
[2018-12-29] MEDS: FERROUS SULFATE (EC) 325 MG TAB PO (08:01)
[2018-12-29] MEDS: ASCORBIC ACID 500 MG TAB PO ×2 (08:01→20:07)
[2018-12-29] MEDS: GABAPENTIN 300 MG CAP PO ×3 (08:01→20:07)
[2018-12-29] MEDS: ASPIRIN (EC) 81 MG TAB PO (08:01)
[2018-12-29] MEDS: INSULIN GLARGINE [LANTus] (100 UNITS/ML) SYG SC ×3 (09:00→20:20)
[2018-12-29] MEDS: DEXTROSE 5%-0.45% NACL 1,000 ML IV ×2 (09:50→16:04)
[2018-12-29] MEDS ORDERED: BUPIVACAINE 0.5% (SDV) 30 ML INJ (13:26)
[2018-12-29] MEDS: BUPIVACAINE 0.5% 30 ML VIAL INJ (14:00)
[2018-12-29] MEDS: POLYMYXIN/BACITRACIN 1L IRRIG IRR (14:20)
[2018-12-29] MEDS: hydrALAzine 20 MG INJ IV (15:31)
[2018-12-29] MEDS: CEFTRIAXONE 1 GM/50 ML (PMX) 50 ML IVPB (16:00)
[2018-12-29] MEDS: Insulin NOVOLOG SS MODERATE Algorithm (SS with meals and bedtime) SC ×2 (17:27→20:14)
[2018-12-29] MEDS: VANCOMYCIN HCL 1.25 GM in SOD CHLORIDE 0.9% 250 ML IVPB ×2 (17:28→18:30)
[2018-12-29] MEDS ORDERED: INSULIN ASPART [NOVOLOG] 3 ML PEN SC (17:35)
[2018-12-29] MEDS: morphine 2 MG INJ IV (20:06)
[2018-12-29] MEDS: ATORVASTATIN 40 MG TAB PO (20:07)
[2018-12-29] MEDS: DOCUSATE SODIUM 100 MG CAP PO (20:07)
[2018-12-29] MEDS: ACETAMINOPHEN 325 MG TAB PO (20:12)
[2018-12-30] MEDS: ACCUCHECK AT 2AM (Patients on SS coverage) XX (02:00)
[2018-12-30] MEDS: ACETAMINOPHEN 325 MG TAB PO (02:32)
[2018-12-30 06:29] LABS: ADD MAN DIFF? NO
[2018-12-30 06:32] LABS: BASOPHILS % 0.2 % (0.0-2.0); EOSINOPHILS # 0.2 10^3/ul (0.0-0.5); EOSINOPHILS % 2.4 % (0.0-7.0); HEMATOCRIT 30.6 % (42.0-52.0); HEMOGLOBIN 10.7 g/dl (14.0-18.0); LYMPHOCYTES # 1.4 10^3/ul (0.8-2.9); LYMPHOCYTES % 13.8 % (15.0-51.0); MEAN CORPUSCULAR HEMOGLOBIN 30.1 pg (29.0-33.0); MEAN PLATELET VOLUME 10.9 fl (7.4-10.4); MONOCYTE # 0.8 10^3/ul (0.3-0.9); MONOCYTES % 7.6 % (0.0-11.0); NEUTROPHIL # 7.5 10^3/ul (1.6-7.5); NEUTROPHILS % 75.6 % (39.0-77.0); PLATELET COUNT 328 10^3/UL (140-415); RED BLOOD COUNT 3.56 10^6/ul (4.70-6.10); RED CELL DISTRIBUTION WIDTH 12.3 % (11.5-14.5)
[2018-12-30 06:49] LABS: ANION GAP 4 (5-13); BLOOD UREA NITROGEN 13 mg/dl (7-20); CALCIUM 7.8 mg/dl (8.4-10.2); CARBON DIOXIDE 26 mmol/L (21-31); CHLORIDE 109 mmol/L (97-110); Estimated GFR 55 mL/min (>60); GLUCOSE 91 mg/dl (70-220); MAGNESIUM 1.7 mg/dl (1.7-2.5); PHOSPHORUS 4.4 mg/dl (2.5-4.9); POTASSIUM 3.5 mmol/L (3.5-5.1); SODIUM 139 mmol/L (135-144)
[2018-12-30] MEDS: Insulin NOVOLOG SS MODERATE Algorithm (SS with meals and bedtime) SC ×4 (08:00→21:00)
[2018-12-30] MEDS: INSULIN ASPART [NOVOLOG] 3 ML PEN SC ×3 (08:48→17:23)
[2018-12-30] MEDS: INSULIN GLARGINE [LANTus] (100 UNITS/ML) SYG SC ×2 (08:49→21:30)
[2018-12-30] MEDS: GABAPENTIN 300 MG CAP PO ×3 (08:50→21:23)
[2018-12-30] MEDS: ASPIRIN (EC) 81 MG TAB PO (08:50)
[2018-12-30] MEDS: METOPROLOL (XL) 25 MG TAB PO (08:51)
[2018-12-30] MEDS: ASCORBIC ACID 500 MG TAB PO ×2 (08:51→21:23)
[2018-12-30] MEDS: AMLODIPINE 10 MG TAB PO (08:51)
[2018-12-30] MEDS: FERROUS SULFATE (EC) 325 MG TAB PO (08:51)
[2018-12-30] MEDS: DAKINS 0.0125%(1/40) 473 ML SOLUTION TP (13:00)
[2018-12-30] MEDS: CEFTRIAXONE 1 GM/50 ML (PMX) 50 ML IVPB (16:54)
[2018-12-30] MEDS ORDERED: HEPARIN 5,000 UNIT/1 ML VIAL (20:51)
[2018-12-30] MEDS: ATORVASTATIN 40 MG TAB PO (21:23)
[2018-12-30] MEDS: HEPARIN 5,000 UNIT/1 ML VIAL SC (21:24)
[2018-12-31] MEDS: ACCUCHECK AT 2AM (Patients on SS coverage) XX (02:00)
[2018-12-31 06:25] LABS: ADD MAN DIFF? NO
[2018-12-31] MEDS: HEPARIN 5,000 UNIT/1 ML VIAL SC ×3 (06:30→20:25)
[2018-12-31 06:35] LABS: WHITE BLOOD COUNT 9.8 10^3/ul (4.8-10.8)
[2018-12-31 06:35] LABS: BASOPHILS % 0.3 % (0.0-2.0); EOSINOPHILS # 0.2 10^3/ul (0.0-0.5); EOSINOPHILS % 1.6 % (0.0-7.0); HEMATOCRIT 32.2 % (42.0-52.0); HEMOGLOBIN 11.2 g/dl (14.0-18.0); LYMPHOCYTES # 1.1 10^3/ul (0.8-2.9); LYMPHOCYTES % 10.7 % (15.0-51.0); MEAN CORPUSCULAR HGB CONC 34.8 g/dl (32.0-37.0); MEAN CORPUSCULAR VOLUME 86.3 fl (82.0-101.0); MEAN PLATELET VOLUME 10.5 fl (7.4-10.4); MONOCYTE # 0.7 10^3/ul (0.3-0.9); MONOCYTES % 6.6 % (0.0-11.0); NEUTROPHIL # 7.9 10^3/ul (1.6-7.5); NEUTROPHILS % 80.3 % (39.0-77.0); PLATELET COUNT 352 10^3/UL (140-415); RED BLOOD COUNT 3.73 10^6/ul (4.70-6.10)
[2018-12-31 06:52] LABS: ANION GAP 5 (5-13); BLOOD UREA NITROGEN 13 mg/dl (7-20); CALCIUM 7.9 mg/dl (8.4-10.2); CARBON DIOXIDE 28 mmol/L (21-31); CHLORIDE 107 mmol/L (97-110); CREATININE 1.33 mg/dl (0.61-1.24); Estimated GFR 54 mL/min (>60); GLUCOSE 80 mg/dl (70-220); POTASSIUM 3.7 mmol/L (3.5-5.1); SODIUM 140 mmol/L (135-144)
[2018-12-31 07:09] LABS: PHOSPHORUS 4.7 mg/dl (2.5-4.9)
[2018-12-31 07:09] LABS: MAGNESIUM 1.9 mg/dl (1.7-2.5)
[2018-12-31] MEDS: Insulin NOVOLOG SS MODERATE Algorithm (SS with meals and bedtime) SC ×4 (08:00→20:20)
[2018-12-31] MEDS: ASCORBIC ACID 500 MG TAB PO ×2 (08:11→20:19)
[2018-12-31] MEDS: INSULIN GLARGINE [LANTus] (100 UNITS/ML) SYG SC ×2 (08:11→20:24)
[2018-12-31] MEDS: INSULIN ASPART [NOVOLOG] 3 ML PEN SC ×3 (08:11→17:25)
[2018-12-31] MEDS: GABAPENTIN 300 MG CAP PO ×3 (08:12→20:19)
[2018-12-31] MEDS: METOPROLOL (XL) 25 MG TAB PO (08:12)
[2018-12-31] MEDS: FERROUS SULFATE (EC) 325 MG TAB PO (08:12)
[2018-12-31] MEDS: ASPIRIN (EC) 81 MG TAB PO (08:12)
[2018-12-31] MEDS: DAKINS 0.0125%(1/40) 473 ML SOLUTION TP (08:13)
[2018-12-31] MEDS: AMLODIPINE 10 MG TAB PO (08:13)
[2018-12-31] MEDS: CEFTRIAXONE 1 GM/50 ML (PMX) 50 ML IVPB (15:03)
[2018-12-31] MEDS: ATORVASTATIN 40 MG TAB PO (20:19)
[2019-01-01] MEDS: ACCUCHECK AT 2AM (Patients on SS coverage) XX (01:41)
[2019-01-01] MEDS: HEPARIN 5,000 UNIT/1 ML VIAL SC ×3 (05:53→21:31)
[2019-01-01 06:01] LABS: ADD MAN DIFF? NO
[2019-01-01 06:16] LABS: WHITE BLOOD COUNT 7.8 10^3/ul (4.8-10.8)
[2019-01-01 06:16] LABS: BASOPHILS % 0.4 % (0.0-2.0); EOSINOPHILS # 0.4 10^3/ul (0.0-0.5); EOSINOPHILS % 4.5 % (0.0-7.0); HEMATOCRIT 31.6 % (42.0-52.0); HEMOGLOBIN 10.8 g/dl (14.0-18.0); LYMPHOCYTES # 1.5 10^3/ul (0.8-2.9); LYMPHOCYTES % 18.7 % (15.0-51.0); MEAN CORPUSCULAR HEMOGLOBIN 29.9 pg (29.0-33.0); MEAN CORPUSCULAR HGB CONC 34.2 g/dl (32.0-37.0); MEAN CORPUSCULAR VOLUME 87.5 fl (82.0-101.0); MEAN PLATELET VOLUME 10.4 fl (7.4-10.4); MONOCYTE # 0.6 10^3/ul (0.3-0.9); MONOCYTES % 7.1 % (0.0-11.0); NEUTROPHIL # 5.3 10^3/ul (1.6-7.5); NEUTROPHILS % 68.9 % (39.0-77.0); PLATELET COUNT 344 10^3/UL (140-415); RED BLOOD COUNT 3.61 10^6/ul (4.70-6.10); RED CELL DISTRIBUTION WIDTH 11.9 % (11.5-14.5)
[2019-01-01 06:34] LABS: ANION GAP 4 (5-13); BLOOD UREA NITROGEN 17 mg/dl (7-20); CALCIUM 7.9 mg/dl (8.4-10.2); CARBON DIOXIDE 27 mmol/L (21-31); CHLORIDE 108 mmol/L (97-110); CREATININE 1.32 mg/dl (0.61-1.24); Estimated GFR 54 mL/min (>60); GLUCOSE 108 mg/dl (70-220); SODIUM 139 mmol/L (135-144)
[2019-01-01 07:01] LABS: PHOSPHORUS 4.1 mg/dl (2.5-4.9)
[2019-01-01 07:01] LABS: MAGNESIUM 1.8 mg/dl (1.7-2.5)
[2019-01-01] MEDS: Insulin NOVOLOG SS MODERATE Algorithm (SS with meals and bedtime) SC ×4 (08:00→21:00)
[2019-01-01] MEDS: FERROUS SULFATE (EC) 325 MG TAB PO (08:15)
[2019-01-01] MEDS: ASPIRIN (EC) 81 MG TAB PO (08:16)
[2019-01-01] MEDS: ASCORBIC ACID 500 MG TAB PO ×2 (08:16→21:30)
[2019-01-01] MEDS: GABAPENTIN 300 MG CAP PO ×3 (08:18→21:30)
[2019-01-01] MEDS: METOPROLOL (XL) 25 MG TAB PO (08:18)
[2019-01-01] MEDS: AMLODIPINE 10 MG TAB PO (08:18)
[2019-01-01] MEDS: INSULIN ASPART [NOVOLOG] 3 ML PEN SC ×3 (08:19→17:18)
[2019-01-01] MEDS: INSULIN GLARGINE [LANTus] (100 UNITS/ML) SYG SC ×2 (08:21→21:32)
[2019-01-01] MEDS: DAKINS 0.0125%(1/40) 473 ML SOLUTION TP (12:02)
[2019-01-01] MEDS: CEFTRIAXONE 1 GM/50 ML (PMX) 50 ML IVPB (15:33)
[2019-01-01] MEDS: ATORVASTATIN 40 MG TAB PO (21:34)
[2019-01-02] MEDS: ACCUCHECK AT 2AM (Patients on SS coverage) XX (00:36)
[2019-01-02] MEDS: HEPARIN 5,000 UNIT/1 ML VIAL SC ×2 (05:12→14:38)
[2019-01-02 05:37] LABS: ADD MAN DIFF? NO
[2019-01-02 05:50] LABS: WHITE BLOOD COUNT 9.8 10^3/ul (4.8-10.8)
[2019-01-02 05:50] LABS: BASOPHILS % 0.3 % (0.0-2.0); EOSINOPHILS # 0.3 10^3/ul (0.0-0.5); EOSINOPHILS % 2.9 % (0.0-7.0); HEMATOCRIT 32.4 % (42.0-52.0); HEMOGLOBIN 11.2 g/dl (14.0-18.0); LYMPHOCYTES # 1.7 10^3/ul (0.8-2.9); LYMPHOCYTES % 17.2 % (15.0-51.0); MEAN CORPUSCULAR HEMOGLOBIN 29.9 pg (29.0-33.0); MEAN CORPUSCULAR HGB CONC 34.6 g/dl (32.0-37.0); MEAN CORPUSCULAR VOLUME 86.4 fl (82.0-101.0); MEAN PLATELET VOLUME 10.5 fl (7.4-10.4); MONOCYTE # 0.6 10^3/ul (0.3-0.9); MONOCYTES % 5.9 % (0.0-11.0); NEUTROPHIL # 7.2 10^3/ul (1.6-7.5); NEUTROPHILS % 73.2 % (39.0-77.0); PLATELET COUNT 398 10^3/UL (140-415); RED BLOOD COUNT 3.75 10^6/ul (4.70-6.10); RED CELL DISTRIBUTION WIDTH 11.9 % (11.5-14.5)
[2019-01-02 06:17] LABS: PHOSPHORUS 4.4 mg/dl (2.5-4.9)
[2019-01-02 06:18] LABS: MAGNESIUM 1.9 mg/dl (1.7-2.5)
[2019-01-02 06:30] LABS: ANION GAP 3 (5-13); BLOOD UREA NITROGEN 20 mg/dl (7-20); CALCIUM 8.4 mg/dl (8.4-10.2); CARBON DIOXIDE 28 mmol/L (21-31); CHLORIDE 108 mmol/L (97-110); Estimated GFR 51 mL/min (>60); GLUCOSE 64 mg/dl (70-220); POTASSIUM 3.7 mmol/L (3.5-5.1); SODIUM 139 mmol/L (135-144)
[2019-01-02] MEDS: Insulin NOVOLOG SS MODERATE Algorithm (SS with meals and bedtime) SC ×2 (08:00→12:00)
[2019-01-02] MEDS: AMLODIPINE 10 MG TAB PO (08:05)
[2019-01-02] MEDS: GABAPENTIN 300 MG CAP PO ×2 (08:05→12:27)
[2019-01-02] MEDS: ASPIRIN (EC) 81 MG TAB PO (08:05)
[2019-01-02] MEDS: FERROUS SULFATE (EC) 325 MG TAB PO (08:05)
[2019-01-02] MEDS: ASCORBIC ACID 500 MG TAB PO (08:06)
[2019-01-02] MEDS: METOPROLOL (XL) 25 MG TAB PO (08:06)
[2019-01-02] MEDS: INSULIN ASPART [NOVOLOG] 3 ML PEN SC ×2 (08:07→12:25)
[2019-01-02] MEDS: INSULIN GLARGINE [LANTus] (100 UNITS/ML) SYG SC (08:08)
[2019-01-02] MEDS: DAKINS 0.0125%(1/40) 473 ML SOLUTION TP (08:09)
[2019-01-02] MEDS: hydrALAzine 20 MG INJ IV (15:03)
== END 2019-01-02 16:00 | disposition home health service (06) | DRG 239 ==
LOC: FTE 11:18 → PP2 12:42
PROC: 0Y6M0Z7 Detachment at Right Foot, Complete 4th Ray, Open Approach (ICD-10-PCS; principal; 2018-12-26 11:23)
PROC: 0JBQ0ZZ Excision of Right Foot Subcutaneous Tissue and Fascia, Open Approach (ICD-10-PCS; 2018-12-26 11:23)
PROC: 0JBQ0ZZ Excision of Right Foot Subcutaneous Tissue and Fascia, Open Approach (ICD-10-PCS; 2018-12-26 11:23)
PROC: 0Y6V0Z1 Detachment at Right 4th Toe, High, Open Approach (ICD-10-PCS; 2018-12-26 11:23)
DX: E11.52 Type 2 diabetes mellitus with diabetic peripheral angiopathy with gangrene (principal); N17.0 Acute kidney failure with tubular necrosis; L03.115 Cellulitis of right lower limb; M86.8X7 Other osteomyelitis, ankle and foot; E87.1 Hypo-osmolality and hyponatremia; L02.611 Cutaneous abscess of right foot; E11.621 Type 2 diabetes mellitus with foot ulcer; E11.69 Type 2 diabetes mellitus with other specified complication; E11.65 Type 2 diabetes mellitus with hyperglycemia; E11.22 Type 2 diabetes mellitus with diabetic chronic kidney disease; I12.9 Hypertensive chronic kidney disease with stage 1 through stage 4 chronic kidney disease, or unspecified chronic kidney disease; D50.9 Iron deficiency anemia, unspecified; E83.89 Other disorders of mineral metabolism; E11.40 Type 2 diabetes mellitus with diabetic neuropathy, unspecified; E78.5 Hyperlipidemia, unspecified; M21.611 Bunion of right foot; M20.11 Hallux valgus (acquired), right foot; N18.3 Chronic kidney disease, stage 3 (moderate); Z79.4 Long term (current) use of insulin
CPT/HCPCS: 36415; 73630; 73630-LT; 73718; 76775; 80048; 80053; 81001; 81003; 82043; 82962; 83036; 83540; 83735; 84100; 84145; 84155; 84300; 85025; 85651; 86140; 87040-91; 87070; 87081; 87102; 88304; 88305; 88311; 93005; 97161; 97162; 99285-25

== ENCOUNTER 2019-02-13 17:31 | Inpatient (IN) | payer MEDICARE, OTHER ==
[2019-02-13] MEDS ORDERED: INSULIN LISPRO 100 UNIT/ML VIAL SC (18:30)
[2019-02-13] MEDS ORDERED: NACL 0.9% 3 ML SYG IV (18:30)
[2019-02-13] MEDS ORDERED: ACETAMINOPHEN 325 MG TAB PO (18:30)
[2019-02-13] MEDS ORDERED: ONDANSETRON 4 MG INJ IV (18:30)
[2019-02-13] MEDS ORDERED: VANCOMYCIN IV PER PHARMACY XX (18:30)
[2019-02-13 19:16] LABS: ADD MAN DIFF? NO
[2019-02-13 19:17] LABS: BASOPHILS % 0.3 % (0.0-2.0); EOSINOPHILS # 0.4 10^3/ul (0.0-0.5); EOSINOPHILS % 4.1 % (0.0-7.0); HEMATOCRIT 30.9 % (42.0-52.0); HEMOGLOBIN 10.4 g/dl (14.0-18.0); LYMPHOCYTES # 1.7 10^3/ul (0.8-2.9); LYMPHOCYTES % 16.7 % (15.0-51.0); MEAN CORPUSCULAR HEMOGLOBIN 29.3 pg (29.0-33.0); MEAN CORPUSCULAR HGB CONC 33.7 g/dl (32.0-37.0); MEAN PLATELET VOLUME 10.9 fl (7.4-10.4); MONOCYTE # 0.6 10^3/ul (0.3-0.9); MONOCYTES % 5.5 % (0.0-11.0); NEUTROPHIL # 7.3 10^3/ul (1.6-7.5); NEUTROPHILS % 72.8 % (39.0-77.0); PLATELET COUNT 363 10^3/UL (140-415); RED BLOOD COUNT 3.55 10^6/ul (4.70-6.10); RED CELL DISTRIBUTION WIDTH 13.2 % (11.5-14.5)
[2019-02-13 19:36] LABS: INR 1.11; PROTIME 14.4 Sec (11.9-14.9); PT RATIO 1.1
[2019-02-13 19:37] LABS: PARTIAL THROMBOPLASTIN TIME 42.3 Sec (23.0-35.0)
[2019-02-13 19:38] LABS: ANION GAP 3 (5-13); BLOOD UREA NITROGEN 20 mg/dl (7-20); CALCIUM 8.3 mg/dl (8.4-10.2); CARBON DIOXIDE 28 mmol/L (21-31); CHLORIDE 109 mmol/L (97-110); CREATININE 1.88 mg/dl (0.61-1.24); Estimated GFR 36 mL/min (>60); GLUCOSE 117 mg/dl (70-220); POTASSIUM 4.7 mmol/L (3.5-5.1); SODIUM 140 mmol/L (135-144)
[2019-02-13] MEDS: VANCOMYCIN HCL 1.75 GM in SOD CHLORIDE 0.9% 500 ML IVPB (20:00)
[2019-02-13] MEDS: PIPER-TAZO 3.375 GM IV (PMX) 100 ML IVPB (20:01)
[2019-02-13] MEDS: SOD CHLORIDE 0.9% 1,000 ML IV (20:01)
[2019-02-13] MEDS ORDERED: SEVOFLURANE 15 MIN (20:45)
[2019-02-13] MEDS ORDERED: LIDOCAINE 2% (SDV) 5 ML INJ (20:56)
[2019-02-13] MEDS ORDERED: PROPOFOL 20 ML (20:56)
[2019-02-13] MEDS ORDERED: FENTAnyl 50 MCG/ML VIAL (20:56)
[2019-02-13] MEDS ORDERED: MIDAZOLAM 1 MG/ML 2 ML INJ (20:56)
[2019-02-13] MEDS ORDERED: LIDOCAINE 1% (MDV) 20 ML INJ (20:57)
[2019-02-13] MEDS ORDERED: ROPIVACAINE 0.5 % 30 ML VIAL (21:03)
[2019-02-13] MEDS ORDERED: ONDANSETRON 4 MG INJ (21:10)
[2019-02-13] MEDS ORDERED: VANCOMYCIN 1 GM INJ (21:28)
[2019-02-13] MEDS ORDERED: hydrALAzine 20 MG INJ (22:15)
[2019-02-13] MEDS: hydrALAzine 20 MG INJ IV (22:23)
[2019-02-13] MEDS: INSULIN ASPART [NOVOLOG] 3 ML PEN SC ×2 (22:54→23:09)
[2019-02-13] MEDS: INSULIN GLARGINE [LANtus] 3 ML PEN SC (23:13)
[2019-02-13] MEDS: ATORVASTATIN 40 MG TAB PO (23:18)
[2019-02-13] MEDS: GABAPENTIN 300 MG CAP PO (23:18)
[2019-02-13] MEDS: HEPARIN 5,000 UNIT/1 ML VIAL SC (23:20)
[2019-02-13] MEDS: INSULIN GLARGINE [LANTus] (100 UNITS/ML) SYG SC (23:22)
[2019-02-13] MEDS ORDERED: INSULIN GLARGINE [LANTus] (100 UNITS/ML) SYG SC (23:30)
[2019-02-14] MEDS: PIPER-TAZO 3.375 GM IV (PMX) 100 ML IVPB ×4 (00:59→17:34)
[2019-02-14] MEDS: ACCU-CHEK XX (01:05)
[2019-02-14] MEDS: SOD CHLORIDE 0.9% 1,000 ML IV ×2 (02:05→18:49)
[2019-02-14 07:28] LABS: ADD MAN DIFF? NO
[2019-02-14 07:35] LABS: BASOPHILS % 0.2 % (0.0-2.0); EOSINOPHILS # 0.4 10^3/ul (0.0-0.5); HEMATOCRIT 29.6 % (42.0-52.0); HEMOGLOBIN 9.8 g/dl (14.0-18.0); LYMPHOCYTES % 10.3 % (15.0-51.0); MEAN CORPUSCULAR HGB CONC 33.1 g/dl (32.0-37.0); MEAN CORPUSCULAR VOLUME 87.6 fl (82.0-101.0); MEAN PLATELET VOLUME 11.2 fl (7.4-10.4); MONOCYTE # 0.5 10^3/ul (0.3-0.9); MONOCYTES % 5.5 % (0.0-11.0); NEUTROPHIL # 7.3 10^3/ul (1.6-7.5); NEUTROPHILS % 79.8 % (39.0-77.0); PLATELET COUNT 294 10^3/UL (140-415); RED BLOOD COUNT 3.38 10^6/ul (4.70-6.10); RED CELL DISTRIBUTION WIDTH 13.5 % (11.5-14.5)
[2019-02-14 07:35] LABS: WHITE BLOOD COUNT 9.2 10^3/ul (4.8-10.8)
[2019-02-14 07:59] LABS: HEMOGLOBIN A1C 8.5 % (0-5.9)
[2019-02-14] MEDS: INSULIN ASPART [NOVOLOG] 3 ML PEN SC ×6 (08:00→20:24)
[2019-02-14 08:07] LABS: ALANINE AMINOTRANSFERASE 22 IU/L (13-69); ALBUMIN 2.4 g/dl (3.3-4.9); ALBUMIN/GLOBULIN RATIO 0.66; ALKALINE PHOSPHATASE 110 IU/L (42-121); ANION GAP 5 (5-13); ASPARTATE AMINO TRANSFERASE 18 IU/L (15-46); BILIRUBIN,INDIRECT 0.3 mg/dl (0-1.1); BILIRUBIN,TOTAL 0.3 mg/dl (0.2-1.3); BLOOD UREA NITROGEN 18 mg/dl (7-20); CARBON DIOXIDE 24 mmol/L (21-31); CHLORIDE 113 mmol/L (97-110); CREATININE 1.71 mg/dl (0.61-1.24); Estimated GFR 40 mL/min (>60); GLUCOSE 152 mg/dl (70-220); MAGNESIUM 1.8 mg/dl (1.7-2.5); PHOSPHORUS 4.2 mg/dl (2.5-4.9); POTASSIUM 4.4 mmol/L (3.5-5.1); SODIUM 142 mmol/L (135-144)
[2019-02-14] MEDS: AMLODIPINE 10 MG TAB PO (08:36)
[2019-02-14] MEDS: GABAPENTIN 300 MG CAP PO ×3 (08:36→20:25)
[2019-02-14] MEDS: HEPARIN 5,000 UNIT/1 ML VIAL SC ×2 (08:38→21:47)
[2019-02-14] MEDS: ASPIRIN (EC) 81 MG TAB PO (08:38)
[2019-02-14] MEDS: METOPROLOL (XL) 25 MG TAB PO (08:38)
[2019-02-14] MEDS: LISINOPRIL 20 MG TAB PO (08:38)
[2019-02-14 19:51] LABS: C-REACTIVE PROTEIN 1.7 mg/dl (0.0-0.9)
[2019-02-14] MEDS: ATORVASTATIN 40 MG TAB PO (20:25)
[2019-02-14] MEDS: INSULIN GLARGINE [LANTus] (100 UNITS/ML) SYG SC (20:28)
[2019-02-14] MEDS: VANCOMYCIN HCL 1.25 GM in SOD CHLORIDE 0.9% 250 ML IVPB (21:46)
[2019-02-14 21:51] LABS: ERYTHROCYTE SEDIMENTATION RATE > 130 mm/Hr (0-20)
[2019-02-15] MEDS: PIPER-TAZO 3.375 GM IV (PMX) 100 ML IVPB ×4 (00:54→17:03)
[2019-02-15] MEDS: ACCU-CHEK XX (02:00)
[2019-02-15] MEDS: INSULIN ASPART [NOVOLOG] 3 ML PEN SC ×7 (07:45→20:30)
[2019-02-15] MEDS: HEPARIN 5,000 UNIT/1 ML VIAL SC ×2 (08:13→20:30)
[2019-02-15] MEDS: AMLODIPINE 10 MG TAB PO (08:14)
[2019-02-15] MEDS: METOPROLOL (XL) 25 MG TAB PO (08:14)
[2019-02-15] MEDS: ASPIRIN (EC) 81 MG TAB PO (08:14)
[2019-02-15] MEDS: GABAPENTIN 300 MG CAP PO ×3 (08:14→20:30)
[2019-02-15] MEDS: LISINOPRIL 20 MG TAB PO (08:14)
[2019-02-15] MEDS: SOD CHLORIDE 0.9% 1,000 ML IV ×3 (10:16→23:44)
[2019-02-15] MEDS: VANCOMYCIN HCL 1.25 GM in SOD CHLORIDE 0.9% 250 ML IVPB (20:27)
[2019-02-15] MEDS: INSULIN GLARGINE [LANTus] (100 UNITS/ML) SYG SC (20:29)
[2019-02-15] MEDS: ATORVASTATIN 40 MG TAB PO (20:30)
[2019-02-16] MEDS: PIPER-TAZO 3.375 GM IV (PMX) 100 ML IVPB ×3 (00:18→11:58)
[2019-02-16] MEDS: ACCU-CHEK XX (01:30)
[2019-02-16 06:46] LABS: BLOOD UREA NITROGEN 17 mg/dl (7-20)
[2019-02-16] MEDS: INSULIN ASPART [NOVOLOG] 3 ML PEN SC ×7 (08:00→21:00)
[2019-02-16] MEDS: HEPARIN 5,000 UNIT/1 ML VIAL SC ×2 (08:19→20:56)
[2019-02-16] MEDS: GABAPENTIN 300 MG CAP PO ×3 (08:20→20:53)
[2019-02-16] MEDS: METOPROLOL (XL) 25 MG TAB PO (08:20)
[2019-02-16] MEDS: ASPIRIN (EC) 81 MG TAB PO (08:20)
[2019-02-16] MEDS: AMLODIPINE 10 MG TAB PO (08:21)
[2019-02-16] MEDS: LISINOPRIL 20 MG TAB PO (08:21)
[2019-02-16] MEDS: SOD CHLORIDE 0.9% 1,000 ML IV (12:04)
[2019-02-16] MEDS: CEFEPIME 1GM/50 ML (PMX) 50 ML IVPB (17:32)
[2019-02-16] MEDS: LIDOCAINE 1% (MPF) 5 ML VIAL SC ×2 (17:34)
[2019-02-16] MEDS ORDERED: DEXTROSE 50% 50 ML SYRINGE IV ×2 (18:30)
[2019-02-16] MEDS ORDERED: GLUCOSE GEL 15 GRAM TUBE BUCCAL (18:30)
[2019-02-16] MEDS ORDERED: GLUCOSE GEL 15 GRAM TUBE PO ×2 (18:30)
[2019-02-16] MEDS ORDERED: GLUCAGON 1 MG INJ IM (18:30)
[2019-02-16] MEDS: ATORVASTATIN 40 MG TAB PO (20:52)
[2019-02-16] MEDS: INSULIN GLARGINE [LANTus] (100 UNITS/ML) SYG SC (20:55)
[2019-02-17] MEDS: ACCU-CHEK XX (01:38)
[2019-02-17] MEDS: CEFEPIME 1GM/50 ML (PMX) 50 ML IVPB ×2 (03:03→16:16)
[2019-02-17 06:07] LABS: ADD MAN DIFF? NO
[2019-02-17 06:08] LABS: BASOPHILS % 0.4 % (0.0-2.0); EOSINOPHILS # 0.3 10^3/ul (0.0-0.5); HEMOGLOBIN 9.5 g/dl (14.0-18.0); LYMPHOCYTES # 1.4 10^3/ul (0.8-2.9); LYMPHOCYTES % 19.1 % (15.0-51.0); MEAN CORPUSCULAR HEMOGLOBIN 29.5 pg (29.0-33.0); MEAN CORPUSCULAR HGB CONC 33.9 g/dl (32.0-37.0); MEAN PLATELET VOLUME 10.9 fl (7.4-10.4); MONOCYTE # 0.5 10^3/ul (0.3-0.9); MONOCYTES % 7.1 % (0.0-11.0); NEUTROPHIL # 5.2 10^3/ul (1.6-7.5); NEUTROPHILS % 68.9 % (39.0-77.0); PLATELET COUNT 253 10^3/UL (140-415); RED BLOOD COUNT 3.22 10^6/ul (4.70-6.10); RED CELL DISTRIBUTION WIDTH 13.2 % (11.5-14.5)
[2019-02-17 06:08] LABS: WHITE BLOOD COUNT 7.5 10^3/ul (4.8-10.8)
[2019-02-17 06:51] LABS: ANION GAP 1 (5-13); BLOOD UREA NITROGEN 18 mg/dl (7-20); CALCIUM 8.1 mg/dl (8.4-10.2); CARBON DIOXIDE 28 mmol/L (21-31); CHLORIDE 111 mmol/L (97-110); CREATININE 1.61 mg/dl (0.61-1.24); Estimated GFR 43 mL/min (>60); GLUCOSE 110 mg/dl (70-220); MAGNESIUM 1.7 mg/dl (1.7-2.5); PHOSPHORUS 3.8 mg/dl (2.5-4.9); POTASSIUM 4.4 mmol/L (3.5-5.1); SODIUM 140 mmol/L (135-144)
[2019-02-17] MEDS: INSULIN ASPART [NOVOLOG] 3 ML PEN SC ×7 (08:00→20:30)
[2019-02-17] MEDS: LISINOPRIL 20 MG TAB PO (09:33)
[2019-02-17] MEDS: HEPARIN 5,000 UNIT/1 ML VIAL SC ×2 (09:33→20:29)
[2019-02-17] MEDS: METOPROLOL (XL) 25 MG TAB PO (09:34)
[2019-02-17] MEDS: AMLODIPINE 10 MG TAB PO (09:34)
[2019-02-17] MEDS: ASPIRIN (EC) 81 MG TAB PO (09:34)
[2019-02-17] MEDS: GABAPENTIN 300 MG CAP PO ×3 (09:34→20:29)
[2019-02-17] MEDS: ATORVASTATIN 40 MG TAB PO (20:28)
[2019-02-17] MEDS: INSULIN GLARGINE [LANTus] (100 UNITS/ML) SYG SC (20:30)
[2019-02-18] MEDS: ACCU-CHEK XX (02:00)
[2019-02-18] MEDS: CEFEPIME 1GM/50 ML (PMX) 50 ML IVPB (06:09)
[2019-02-18] MEDS: INSULIN ASPART [NOVOLOG] 3 ML PEN SC ×7 (08:13→20:57)
[2019-02-18] MEDS: HEPARIN 5,000 UNIT/1 ML VIAL SC ×2 (08:14→20:55)
[2019-02-18] MEDS: AMLODIPINE 10 MG TAB PO (08:15)
[2019-02-18] MEDS: METOPROLOL (XL) 25 MG TAB PO (08:15)
[2019-02-18] MEDS: GABAPENTIN 300 MG CAP PO ×3 (08:15→20:54)
[2019-02-18] MEDS: ASPIRIN (EC) 81 MG TAB PO (08:15)
[2019-02-18] MEDS: LISINOPRIL 20 MG TAB PO (08:15)
[2019-02-18] MEDS: AMPICILLIN 1 GM/NS (PMX) 50 ML IVPB ×2 (16:44→21:00)
[2019-02-18] MEDS: CIPROFLOXACIN 500 MG TAB PO (16:44)
[2019-02-18] MEDS: ATORVASTATIN 40 MG TAB PO (20:54)
[2019-02-18] MEDS: INSULIN GLARGINE [LANTus] (100 UNITS/ML) SYG SC (20:57)
[2019-02-19] MEDS: ACCU-CHEK XX (02:00)
[2019-02-19] MEDS: CIPROFLOXACIN 500 MG TAB PO ×2 (06:47→17:32)
[2019-02-19] MEDS: AMPICILLIN 1 GM/NS (PMX) 50 ML IVPB ×3 (06:47→20:11)
[2019-02-19] MEDS: INSULIN ASPART [NOVOLOG] 3 ML PEN SC ×7 (08:16→21:04)
[2019-02-19] MEDS: HEPARIN 5,000 UNIT/1 ML VIAL SC ×2 (08:18→21:05)
[2019-02-19] MEDS: GABAPENTIN 300 MG CAP PO ×3 (08:19→20:11)
[2019-02-19] MEDS: ASPIRIN (EC) 81 MG TAB PO (08:19)
[2019-02-19] MEDS: HYDROCODONE/APAP (5/325) TAB PO (08:19)
[2019-02-19] MEDS: AMLODIPINE 10 MG TAB PO (08:23)
[2019-02-19] MEDS: LISINOPRIL 20 MG TAB PO (08:23)
[2019-02-19] MEDS: METOPROLOL (XL) 25 MG TAB PO (08:23)
[2019-02-19 13:27] LABS: ERYTHROCYTE SEDIMENTATION RATE 115 mm/Hr (0-20)
[2019-02-19] MEDS: ATORVASTATIN 40 MG TAB PO (20:11)
[2019-02-19] MEDS: INSULIN GLARGINE [LANTus] (100 UNITS/ML) SYG SC (20:19)
== END 2019-02-19 21:19 | disposition home health service (06) | DRG 617 ==
LOC: PP2 17:31
PROC: 0Y6M0ZD Detachment at Right Foot, Partial 4th Ray, Open Approach (ICD-10-PCS; principal; 2019-02-13 19:30)
PROC: 0QBN0ZZ Excision of Right Metatarsal, Open Approach (ICD-10-PCS; 2019-02-13 19:30)
PROC: 02HV33Z Insertion of Infusion Device into Superior Vena Cava, Percutaneous Approach (ICD-10-PCS; 2019-02-13 20:51)
DX: E11.621 Type 2 diabetes mellitus with foot ulcer (principal); M86.8X7 Other osteomyelitis, ankle and foot; L03.115 Cellulitis of right lower limb; L97.519 Non-pressure chronic ulcer of other part of right foot with unspecified severity; E11.51 Type 2 diabetes mellitus with diabetic peripheral angiopathy without gangrene; I10 Essential (primary) hypertension; E78.5 Hyperlipidemia, unspecified; E11.69 Type 2 diabetes mellitus with other specified complication; E11.42 Type 2 diabetes mellitus with diabetic polyneuropathy; N28.9 Disorder of kidney and ureter, unspecified; E66.9 Obesity, unspecified; Z89.421 Acquired absence of other right toe(s)
CPT/HCPCS: 36569; 71045; 73630; 73718; 76937; 80048; 80053; 82565; 82962; 83036; 83735; 84100; 84145; 84443; 84520; 85025; 85610; 85651; 85730; 86140; 87070; 87075; 87102; 87116; 88304; 88311; 93922; 97116; 97162; 97166; 97530

== ENCOUNTER 2019-03-09 10:30 | Emergency (ER) | payer MEDICARE, OTHER ==
[2019-03-09] MEDS: NICARDipine HCL 30 MG CAPSULE PO (11:18)
[2019-03-09 11:29] LABS: ADD MAN DIFF? NO
[2019-03-09 11:32] LABS: BASOPHILS % 0.4 % (0.0-2.0); EOSINOPHILS % 5.8 % (0.0-7.0); LYMPHOCYTES % 19.9 % (15.0-51.0); MEAN CORPUSCULAR HEMOGLOBIN 29.6 pg (29.0-33.0); MEAN CORPUSCULAR HGB CONC 34.4 g/dl (32.0-37.0); MEAN CORPUSCULAR VOLUME 86.3 fl (82.0-101.0); MEAN PLATELET VOLUME 11.4 fl (7.4-10.4); MONOCYTES % 6.1 % (0.0-11.0); NEUTROPHILS % 67.2 % (39.0-77.0); PLATELET COUNT 211 10^3/UL (140-415); RED BLOOD COUNT 3.71 10^6/ul (4.70-6.10); RED CELL DISTRIBUTION WIDTH 13.6 % (11.5-14.5)
[2019-03-09 11:32] LABS: WHITE BLOOD COUNT 8.5 10^3/ul (4.8-10.8)
[2019-03-09 11:33] LABS: EOSINOPHILS # 0.5 10^3/ul (0.0-0.5); LYMPHOCYTES # 1.7 10^3/ul (0.8-2.9); MONOCYTE # 0.5 10^3/ul (0.3-0.9); NEUTROPHIL # 5.7 10^3/ul (1.6-7.5)
[2019-03-09 11:52] LABS: INR 0.97
[2019-03-09 11:53] LABS: ALANINE AMINOTRANSFERASE 24 IU/L (13-69); ALBUMIN 2.5 g/dl (3.3-4.9); ALBUMIN/GLOBULIN RATIO 0.78; ALKALINE PHOSPHATASE 130 IU/L (42-121); ANION GAP 5 (5-13); ASPARTATE AMINO TRANSFERASE 22 IU/L (15-46); BILIRUBIN,INDIRECT 0.3 mg/dl (0-1.1); BILIRUBIN,TOTAL 0.3 mg/dl (0.2-1.3); BLOOD UREA NITROGEN 24 mg/dl (7-20); CALCIUM 8.2 mg/dl (8.4-10.2); CARBON DIOXIDE 25 mmol/L (21-31); CHLORIDE 108 mmol/L (97-110); CREATINE KINASE 194 IU/L (23-200); CREATININE 1.69 mg/dl (0.61-1.24); Estimated GFR 41 mL/min (>60); GLUCOSE 157 mg/dl (70-220); PARTIAL THROMBOPLASTIN TIME 42.8 Sec (23.0-35.0); SODIUM 138 mmol/L (135-144); TOTAL PROTEIN 5.7 g/dl (6.1-8.1)
[2019-03-09 12:02] LABS: B-TYPE NATRIURETIC PEPTIDE 1330 PG/ML (0-125); CK INDEX 1.6; TROPONIN-I < 0.012 ng/ml (0.000-0.120)
[2019-03-09 12:03] LABS: CK-MB 3.17 ng/ml (0.0-2.4)
== END 2019-03-09 13:21 | disposition home or self-care (01) ==
LOC: E/R 10:30
DX: I16.0 Hypertensive urgency (principal); E11.9 Type 2 diabetes mellitus without complications; Z79.4 Long term (current) use of insulin; Z79.82 Long term (current) use of aspirin; Z87.891 Personal history of nicotine dependence
CPT/HCPCS: 71045; 80053; 82550; 82553; 83880; 84484; 85025; 85610; 85730; 93005; 99285-25

== ENCOUNTER 2019-03-20 12:11 | Emergency (ER) | payer MEDICARE, OTHER | END 2019-03-20 12:49 | disposition home or self-care (01) | LOC: FTE 12:11 | DX: Z45.2 Encounter for adjustment and management of vascular access device (principal); I10 Essential (primary) hypertension; Z79.4 Long term (current) use of insulin; Z79.82 Long term (current) use of aspirin | CPT/HCPCS: 99282 ==